=== PATIENT | female | born 1965 | race African-American/Black ===

== ENCOUNTER → 2018-07-28 | Outpatient (CLI) | payer OTHER | END | disposition home or self-care (01) | LOC: CVU 07:18 | PROVIDERS: ATTEND Family Medicine | DX: I08.2 Rheumatic disorders of both aortic and tricuspid valves (principal); I10 Essential (primary) hypertension; E66.9 Obesity, unspecified; Z98.51 Tubal ligation status; Z87.891 Personal history of nicotine dependence; Z79.899 Other long term (current) drug therapy | CPT/HCPCS: 93017; 93306 ==